=== PATIENT | female | born 1985 | race African-American/Black ===

== ENCOUNTER 2017-01-24 21:33 | Emergency (ER) | payer OTHER ==
[~2017-01-24] VITALS: Ht 170.2 cm; Wt 88.6 kg
[~2017-01-24 21:33] MED LIST: NOCURR
[2017-01-24 21:36] VITALS: BP 131/80
[2017-01-24] MEDS ORDERED: DEXAMETHASONE 4 MG TABLET PO ONE (22:00)
[2017-01-24] MEDS ORDERED: PENICILLIN G BENZATHINE LA 1,200,000 UNITS/2 ML SYRINGE IM ONE (22:00)
== END 2017-01-24 22:17 | disposition home or self-care (01) ==
LOC: EMS 21:34
DX: J02.9 Acute pharyngitis, unspecified (principal)
CPT/HCPCS: 96372; 99283; J0561; J8540

== ENCOUNTER 2017-03-19 21:48 | Emergency (ER) | payer OTHER ==
[~2017-03-19] VITALS: Ht 175.3 cm; Wt 84.1 kg
[2017-03-19 22:50] LABS: BASOPHILS # (AUTO) 0.01 K/uL (0.00-0.20); BASOPHILS % (AUTO) 0.1 % (0.0-2.0); EOSINOPHILS % (AUTO) 3.45 % (1.0-6.0); HEMATOCRIT 38.9 % (36-46); HEMOGLOBIN 12.9 g/dL (12.0-16.0); LYMPHOCYTES # (AUTO) 2.9 K/uL (1.0-4.8); LYMPHOCYTES % (AUTO) 33.9 % (22.0-44.0); MEAN CORPUSCULAR HEMOGLOBIN 27.7 pg (26.0-34.0); MEAN CORPUSCULAR HGB CONC 33.2 G/dL (31.0-37.0); MEAN CORPUSCULAR VOLUME 84 fL (80-100); MONOCYTES # (AUTO) 0.2 K/uL (0.1-1.0); MONOCYTES % (AUTO) 2.3 % (2.0-9.0); NEUTROPHILS # (AUTO) 5.2 K/uL (1.8-7.7); NEUTROPHILS % (AUTO) 60.3 % (40.0-70.0); PLATELET COUNT (AUTO) 211 K/uL (150-450); RED BLOOD CELL COUNT(AUTO) 4.65 MIL/uL (4.00-5.20); RED CELL DISTRIBUTION WIDTH 13.9 % (11.5-14.5)
[2017-03-19 23:01] LABS: ANION GAP 5 mmol/L (8-16); CALCIUM, TOTAL 8.4 mg/dL (8.8-10.5); CARBON DIOXIDE 27 mmol/L (22-29); CHLORIDE 104 mmol/L (98-107); CREATININE 1.03 mg/dL (0.60-1.30); GLOMERULAR FILTR. RATE CALC > 60 mL/min (>60); GLUCOSE,RANDOM 108 mg/dL (70-110); POTASSIUM 3.6 mmol/L (3.5-5.1); SODIUM SERUM 136 mmol/L (136-145); UREA NITROGEN, BLOOD 14 mg/dL (7-18)
[2017-03-19 23:10] LABS: ALANINE AMINOTRANSFERASE 22 U/L (12-78); ALBUMIN 3.8 g/dL (3.4-5.0); ALKALINE PHOSPHATASE 79 U/L (46-116); ASPARTATE AMINOTRANSFERASE 15 U/L (15-37); BILIRUBIN,TOTAL 0.2 mg/dL (0.1-1.0); LIPASE 94 U/L (73-393); TOTAL PROTEIN, SERUM 7.4 g/dL (6.4-8.2)
[2017-03-20 01:36] LABS: APPEARANCE,URINE CLOUDY (CLEAR); BILIRUBIN,URINE NEGATIVE (NEGATIVE); GLUCOSE, URINE (UA) NEGATIVE (NEGATIVE); KETONES,URINE NEGATIVE (NEGATIVE); LEUKOCYTE ESTERASE ,URINE NEGATIVE (NEGATIVE); NITRATE,URINE NEGATIVE (NEGATIVE); OCCULT BLOOD,URINE NEGATIVE (NEGATIVE); PROTEIN,URINE NEGATIVE (NEGATIVE); UROBILINOGEN,URINE 0.2 mg/dL (<=1.0)
[2017-03-20 02:15] VITALS: BP 117/69
[2017-03-20] MEDS ORDERED: KETOROLAC TROMETHAMINE 30 MG/ML VIAL IM ONE (02:30)
== END 2017-03-20 02:42 | disposition home or self-care (01) ==
LOC: EMS 21:50
DX: R10.9 Unspecified abdominal pain (principal)
CPT/HCPCS: 36415; 80053; 81003; 83690; 84703; 85025; 96372; 99284; J1885

== ENCOUNTER 2017-10-27 11:31 | Emergency (ER) | payer OTHER ==
[~2017-10-27] VITALS: Ht 170.2 cm; Wt 75.0 kg
[2017-10-27 12:20] VITALS: BP 95/52
[2017-10-27] MEDS ORDERED: IBUPROFEN 600 MG TABLET PO ONE (13:15)
== END 2017-10-27 14:01 | disposition home or self-care (01) ==
LOC: EMS 11:33
DX: S60.222A Contusion of left hand, initial encounter (principal); Y04.0XXA Assault by unarmed brawl or fight, initial encounter; Y93.89 Activity, other specified; Y92.89 Other specified places as the place of occurrence of the external cause; Y99.8 Other external cause status
CPT/HCPCS: 99284

== ENCOUNTER 2018-03-05 16:28 | Emergency (ER) | payer OTHER ==
[~2018-03-05] VITALS: Ht 177.8 cm; Wt 98.6 kg
[2018-03-05 17:33] LABS: APPEARANCE,URINE CLOUDY (CLEAR); BILIRUBIN,URINE NEGATIVE (NEGATIVE); GLUCOSE, URINE (UA) NEGATIVE (NEGATIVE); KETONES,URINE NEGATIVE (NEGATIVE); LEUKOCYTE ESTERASE ,URINE NEGATIVE (NEGATIVE); NITRATE,URINE NEGATIVE (NEGATIVE); OCCULT BLOOD,URINE NEGATIVE (NEGATIVE); PROTEIN,URINE NEGATIVE (NEGATIVE)
[2018-03-05] MEDS ORDERED: CYCLOBENZAPRINE HCL 10 MG TABLET PO ONE (18:00)
[2018-03-05] MEDS ORDERED: KETOROLAC TROMETHAMINE 60 MG/2 ML VIAL IM ONE (18:00)
[2018-03-05 18:48] VITALS: BP 140/85
== END 2018-03-05 19:25 | disposition home or self-care (01) ==
LOC: EMS 16:29
DX: M54.5 Low back pain (principal); J06.9 Acute upper respiratory infection, unspecified
CPT/HCPCS: 81003; 84703; 96372; 99283; J1885

== ENCOUNTER 2018-03-27 05:12 | Emergency (ER) | payer OTHER ==
[~2018-03-27] VITALS: Ht 170.2 cm; Wt 77.3 kg
[2018-03-27] MEDS ORDERED: SULFAMETHOX/TRIMETH DS 800-160 MG/TABLET PO ONE (06:15)
[2018-03-27] MEDS ORDERED: CEPHALEXIN MONOHYDRATE 500 MG CAPSULE PO ONE (06:15)
[2018-03-27 06:33] VITALS: BP 124/67
== END 2018-03-27 06:35 | disposition home or self-care (01) ==
LOC: EMS 05:12
DX: M79.644 Pain in right finger(s) (principal)

== ENCOUNTER 2019-12-11 17:35 | Emergency (ER) | payer MEDICAID, OTHER ==
[~2019-12-11] VITALS: Ht 170.2 cm; Wt 100.0 kg
[2019-12-11 19:17] LABS: COVID AG,FIA SOURCE NASAL SWAB
[2019-12-11 19:42] LABS: INFLUENZA TYPE A NEGATIVE FOR TYPE A (NEGATIVE); INFLUENZA TYPE B NEGATIVE FOR TYPE B (NEGATIVE)
[2019-12-11 19:51] VITALS: BP 119/69
== END 2019-12-11 20:40 | disposition home or self-care (01) ==
LOC: EMS 17:37
DX: R50.9 Fever, unspecified (principal); M79.10 Myalgia, unspecified site; R10.2 Pelvic and perineal pain; Z20.828 Contact with and (suspected) exposure to other viral communicable diseases
CPT/HCPCS: 87426; 87804; 99283; U0003

== ENCOUNTER 2021-02-25 12:40 | Emergency (ER) | payer MEDICAID ==
[~2021-02-25] VITALS: Ht 170.2 cm; Wt 97.7 kg
[2021-02-25 14:48] LABS: COVID AG,FIA SOURCE NASOPHARYNGEAL
[2021-02-25 15:11] LABS: BASOPHILS % (AUTO) 0.6 % (0.0-2.0); EOSINOPHILS % (AUTO) 0.1 % (1.0-6.0); HEMATOCRIT 38.3 % (36-46); LYMPHOCYTES # (AUTO) 0.9 K/uL (1.0-4.8); LYMPHOCYTES % (AUTO) 32.5 % (22.0-44.0); MEAN CORPUSCULAR HEMOGLOBIN 27.5 pg (26.0-34.0); MEAN CORPUSCULAR VOLUME 81 fL (80-100); MONOCYTES # (AUTO) 0.3 K/uL (0.1-1.0); MONOCYTES % (AUTO) 12.2 % (2.0-9.0); NEUTROPHILS # (AUTO) 1.5 K/uL (1.8-7.7); NEUTROPHILS % (AUTO) 54.6 % (40.0-70.0); PLATELET COUNT (AUTO) 153 K/uL (150-450); RED BLOOD CELL COUNT(AUTO) 4.74 MIL/uL (4.00-5.20); RED CELL DISTRIBUTION WIDTH 13.4 % (11.5-14.5)
[2021-02-25 15:20] LABS: ANION GAP 7 mmol/L (8-16); CALCIUM, TOTAL 8.2 mg/dL (8.8-10.5); CARBON DIOXIDE 28 mmol/L (22-29); CHLORIDE 105 mmol/L (98-107); CREATININE 0.88 mg/dL (0.60-1.30); GLOMERULAR FILTR. RATE CALC > 60 mL/min (>60); GLUCOSE,RANDOM 88 mg/dL (70-110); POTASSIUM 3.4 mmol/L (3.5-5.1); SODIUM SERUM 140 mmol/L (136-145); UREA NITROGEN, BLOOD 11 mg/dL (7-18)
[2021-02-25 15:35] LABS: ALANINE AMINOTRANSFERASE 19 U/L (12-78); ALBUMIN 3.6 g/dL (3.4-5.0); ALKALINE PHOSPHATASE 60 U/L (46-116); ASPARTATE AMINOTRANSFERASE 23 U/L (15-37); BILIRUBIN,TOTAL 0.3 mg/dL (0.1-1.0); HCG,QUANTITATIVE < 1 mIU/mL (0-6); LIPASE 113 U/L (73-393)
[2021-02-25 15:50] LABS: INFLUENZA TYPE A NEGATIVE FOR TYPE A (NEGATIVE); INFLUENZA TYPE B NEGATIVE FOR TYPE B (NEGATIVE)
[2021-02-25] MEDS ORDERED: KETOROLAC TROMETHAMINE 30 MG/ML VIAL IM ONE (16:45)
[2021-02-25 17:16] VITALS: BP 116/82
== END 2021-02-25 17:20 | disposition home or self-care (01) ==
LOC: EMS 12:40
DX: U07.1 COVID-19 (principal)
CPT/HCPCS: 36415; 71045; 80053; 83690; 84702; 85025; 87426; 87804; 96372; 99284; J1885

== ENCOUNTER 2022-02-18 22:47 | Emergency (ER) | payer MEDICAID ==
[~2022-02-18] VITALS: Ht 175.3 cm; Wt 90.9 kg
[2022-02-19 00:04] LABS: BASOPHILS % (AUTO) 0.6 % (0.0-2.0); EOSINOPHILS % (AUTO) 1.9 % (1.0-6.0); HEMATOCRIT 40.5 % (36-46); HEMOGLOBIN 13.5 g/dL (12.0-16.0); LYMPHOCYTES # (AUTO) 2.5 K/uL (1.0-4.8); LYMPHOCYTES % (AUTO) 33.3 % (22.0-44.0); MEAN CORPUSCULAR HEMOGLOBIN 27.9 pg (26.0-34.0); MEAN CORPUSCULAR HGB CONC 33.3 G/dL (31.0-37.0); MEAN CORPUSCULAR VOLUME 84 fL (80-100); MONOCYTES # (AUTO) 0.5 K/uL (0.1-1.0); MONOCYTES % (AUTO) 6.7 % (2.0-9.0); NEUTROPHILS # (AUTO) 4.3 K/uL (1.8-7.7); NEUTROPHILS % (AUTO) 57.5 % (40.0-70.0); PLATELET COUNT (AUTO) 241 K/uL (150-450); RED BLOOD CELL COUNT(AUTO) 4.83 MIL/uL (4.00-5.20); RED CELL DISTRIBUTION WIDTH 13.7 % (11.5-14.5)
[2022-02-19 00:21] LABS: ANION GAP 7 mmol/L (8-16); CARBON DIOXIDE 29 mmol/L (22-29); CHLORIDE 105 mmol/L (98-107); CREATININE 1.03 mg/dL (0.60-1.30); GLUCOSE,RANDOM 105 mg/dL (70-110); POTASSIUM 3.8 mmol/L (3.5-5.1); SODIUM SERUM 141 mmol/L (136-145); UREA NITROGEN, BLOOD 15 mg/dL (7-18)
[2022-02-19 00:22] LABS: GLOMERULAR FILTR. RATE CALC > 60 mL/min (>60)
[2022-02-19] MEDS ORDERED: KETOROLAC TROMETHAMINE 30 MG/ML VIAL IM ONE (00:30)
[2022-02-19 00:33] LABS: ALANINE AMINOTRANSFERASE 17 U/L (12-78); ALBUMIN 3.9 g/dL (3.4-5.0); ALKALINE PHOSPHATASE 71 U/L (46-116); ASPARTATE AMINOTRANSFERASE 13 U/L (15-37); BILIRUBIN,TOTAL 0.4 mg/dL (0.1-1.0); HCG,QUANTITATIVE < 1 mIU/mL (0-6); LIPASE 126 U/L (73-393); TOTAL PROTEIN, SERUM 7.7 g/dL (6.4-8.2)
[2022-02-19 02:00] LABS: APPEARANCE,URINE CLEAR (CLEAR); BILIRUBIN,URINE NEGATIVE (NEGATIVE); GLUCOSE, URINE (UA) NEGATIVE (NEGATIVE); KETONES,URINE NEGATIVE (NEGATIVE); LEUKOCYTE ESTERASE ,URINE SMALL (NEGATIVE); NITRATE,URINE NEGATIVE (NEGATIVE); OCCULT BLOOD,URINE NEGATIVE (NEGATIVE); PH,URINE 5.5 (5.0-8.0); PROTEIN,URINE TRACE mg/dL (NEGATIVE); SPECIFIC GRAVITIY, URINE 1.033 (1.003-1.030); UROBILINOGEN,URINE <=1.0 mg/dL (<=1.0)
[2022-02-19 02:12] LABS: BACTERIA,URINE None Seen /HPF (None Seen); RBC,URINE 0-2 /HPF (0-2); SQUAMOUS EPITHELIAL CELL,UR Many /LPF (None Seen)
[2022-02-19] MEDS ORDERED: IBUP-2070 PO (02:21)
[2022-02-19 03:06] VITALS: BP 106/73
== END 2022-02-19 03:12 | disposition home or self-care (01) ==
LOC: EMS 22:53
DX: R10.31 Right lower quadrant pain (principal); Z98.890 Other specified postprocedural states
CPT/HCPCS: 99284; 80053; 81001; 83690; 84702; 85025; 36415; 74176; 96372; J1885

== ENCOUNTER 2022-09-09 16:27 | Emergency (ER) | payer MEDICAID ==
[~2022-09-09] VITALS: Ht 175.3 cm; Wt 100.0 kg
[~2022-09-09 16:27] MED LIST changes: +IBUP-1492 PO; -NOCURR
[2022-09-09 16:29] VITALS: TEMP 98
[2022-09-09] MEDS ORDERED: BACLOFEN 10 MG TABLET PO ONE (18:30)
[2022-09-09] MEDS ORDERED: KETOROLAC TROMETHAMINE 30 MG/ML VIAL IM ONE (18:30)
[2022-09-09] MEDS ORDERED: LIDOCAINE 5% TRANSDERMAL PATCH TD ONE (18:30)
[2022-09-09] MEDS ORDERED: IBUP-1492 PO (19:56)
[2022-09-09] MEDS ORDERED: LIDO700A15 TP (19:57)
[2022-09-09] MEDS ORDERED: BACL10TA PO (19:57)
[2022-09-09 20:25] VITALS: BP 132/70; PULSE 76; RESP 18
== END 2022-09-09 20:31 | disposition home or self-care (01) ==
LOC: EMS 16:28
DX: M54.50 Low back pain, unspecified (principal); Z98.890 Other specified postprocedural states
CPT/HCPCS: 99283; 72100; 81025; 96372; J1885

== ENCOUNTER 2022-12-16 23:07 | Emergency (ER) | payer MEDICAID ==
[~2022-12-16] VITALS: Ht 175.3 cm; Wt 84.1 kg
[~2022-12-16 23:07] MED LIST changes: +BACL10TA PO; +LIDO700A15 TP
[2022-12-16 23:20] VITALS: TEMP 98
[2022-12-17] MEDS ORDERED: KETOROLAC TROMETHAMINE 60 MG/2 ML VIAL IM ONE (00:45)
[2022-12-17] MEDS ORDERED: METHOCARBAMOL 500 MG TABLET PO ONE (00:45)
[2022-12-17] MEDS ORDERED: LIDOCAINE 5% TRANSDERMAL PATCH TD ONE (00:45)
[2022-12-17] MEDS ORDERED: METH-659 PO (01:35)
[2022-12-17] MEDS ORDERED: IBUP-1492 PO (01:35)
[2022-12-17 02:13] VITALS: BP 128/60; PULSE 85; RESP 18
== END 2022-12-17 02:14 | disposition home or self-care (01) ==
LOC: EMS 23:10
DX: M54.50 Low back pain, unspecified (principal); Z98.890 Other specified postprocedural states
CPT/HCPCS: 99283; 96372; J1885

== ENCOUNTER 2024-07-07 10:21 | Emergency (ER) | payer MEDICAID ==
[~2024-07-07] VITALS: Ht 175.3 cm; Wt 109.1 kg
[~2024-07-07 10:21] MED LIST changes: +LIDO-57 TP; -LIDO700A15 TP; +METH-659 PO
[2024-07-07 10:29] VITALS: BP 113/86; PULSE 90; RESP 18; TEMP 98.9; O2SAT 100
[2024-07-07 10:41] LABS: COVID AG,FIA SOURCE NASAL SWAB
[2024-07-07 10:59] LABS: RAPID GROUP A STREP NEGATIVE (NEGATIVE)
[2024-07-07 11:04] LABS: INFLUENZA TYPE A NEGATIVE FOR TYPE A (NEGATIVE); INFLUENZA TYPE B NEGATIVE FOR TYPE B (NEGATIVE)
[2024-07-07 11:05] LABS: SARS-COV2 (COVID) ANTIGEN,FIA Negative (Negative)
== END 2024-07-07 11:55 | disposition home or self-care (01) ==
LOC: EMS 10:23
DX: J02.8 Acute pharyngitis due to other specified organisms (principal); B97.89 Other viral agents as the cause of diseases classified elsewhere; R11.0 Nausea; Z20.822 Contact with and (suspected) exposure to COVID-19
CPT/HCPCS: 87430; 87804; 99283

== ENCOUNTER 2024-10-31 21:14 | Emergency (ER) | payer MEDICAID ==
[~2024-10-31] VITALS: Ht 175.3 cm; Wt 102.3 kg
[2024-10-31 21:35] VITALS: TEMP 97.9
[2024-10-31] MEDS ORDERED: CYCL-448 PO (23:46)
[2024-10-31 23:57] VITALS: BP 109/65; PULSE 85; RESP 18; O2SAT 97
== END 2024-11-01 00:02 | disposition home or self-care (01) ==
LOC: EMS 21:15
DX: S80.01XA Contusion of right knee, initial encounter (principal); M25.561 Pain in right knee; W01.0XXA Fall on same level from slipping, tripping and stumbling without subsequent striking against object, initial encounter; Y93.89 Activity, other specified; Y92.89 Other specified places as the place of occurrence of the external cause; Y99.8 Other external cause status
CPT/HCPCS: 99283